=== PATIENT | male | born 1955 | race Caucasian/White ===

== ENCOUNTER 2016-12-24 11:37 | Inpatient (IN) ==
[2016-12-24] MEDS ORDERED: Naloxone 0.4 MG/ML INJ IVP PRN ×2 (13:32→13:36)
--- NOTE | 2016-12-24 13:39 | Cardiology History & Physical ---
Date of Encounter: 12/24/16 Time of Encounter: 13:30 Assessment and Plan (1) Atrial flutter with rapid ventricular response Current Visit: No Status: Acute Per Cardiology: History of paroxysmal atrial fibrillation previously on metoprolol tartrate 25 mg by mouth twice a day and full dose aspirin for anticoagulation. Of note, patient is currently taking subcutaneous testosterone about every 4-5 months-- on his second regimen. Previously presented last week with symptomatic A. flutter with RVR in the 140s to 160s. During that hospital stay, Troponin negative 1, lectrolytes stable, recent thyroid testing normal June 2016. Underwent overnight pulse ox with no significant findings. Had echo November 2015 which showed EF 60%, moderate diastolic dysfunction, mild MR, mild TR, mild pulmonary hypertension, normal RA size, moderately dilated left atrium. Patient converted to sinus rhythm on IV Cardizem drip. Underwent nuclear stress test which was negative for ischemia. Started on Rythmol 150mg by mouth every 8 hours and Eliquis 5 mg by mouth twice a day. Presents now with recurrent atrial flutter in the 160s. Per discussion with Dr. Lopez, we'll continue his current dose of Rythmol, initiate IV Cardizem drip, will start short-acting by mouth Cardizem, possible ANALIA cardioversion tomorrow. Continue with anticoagulation. All questions answered. Patient and verbalized understanding and agreed with plan. Will discontinue lisinopril for now. History of Present Illness Chief complaint: Palps, SOB HPI: Joao is a 61 year old male with a relevant past medical history of atrial fibrillation, hypertension, and moderate diastolic dysfunction. Patient is status post direct admission last week for a flutter with RVR with spontaneous conversion to sinus rhythm on Cardizem drip. During hospital stay stress test was negative for ischemia and started on antiarrhythmic therapy of Rythmol 150 mg by mouth every 8 hours. Additionally initiated on Eliquis for anticoagulation. Patient presented to cardiology today with concerns or recurrent palpitations and shortness of breath starting yesterday evening. Patient directly admitted to cardiology again for further management of a flutter with RVR with ECG showing 140s to 160s. He reports compliance with medications and has not missed any doses. Denies any acute changes. He denies any active bleeding or blood loss. He does indicate was discharged home on lisinopril for blood pressure optimization. Past Med Surg Social Fam HX - Past Medical History Attestation: Yes The following information was validated with the patient. Source: patient, old records reviewed, obtained from family Medical history: atrial fibrillation, hypertension, kidney stones Psychiatric history: no psych history - Past Surgical History Surgical History: other - Social History Smoking Status: Former smoker Smokeless Tobacco Status: No Alcohol use: occasionally Drug use: none - Family History Mother Hx Family Cardiac Disorders: Yes Medications and Allergies Cholecalciferol (D-3) [Vitamin D] 5,000 unit PO DAILY 12/20/16 [History] Lactobacillus Combination No.8 [Adult Probiotic] 1 cap PO DAILY 12/20/16 [ History] Apixaban [Eliquis] 5 mg PO BID #60 tab 12/22/16 [Rx] Lisinopril [Zestril] 2.5 mg PO DAILY #30 tab 12/22/16 [Rx] Propafenone [Rhythmol] 150 mg PO Q8H #90 tab 12/22/16 [Rx] 3 Allergy/AdvReac Type Severity Reaction Status Date / Time No Known Allergies Allergy Verified 12/20/16 08:43 All Systems Review: A 10-system review of systems was performed and is negative for pertinent findings except as documented above in the HPI. - Constitutional Constitutional: fatigue - Cardiovascular Cardiovascular: dyspnea at rest, palpitations, rapid heart rate Physical Examination Vital Signs, Last 4 Hours Temp Pulse Resp BP Pulse Ox 12/24/16 13:18 97.8 F 178 18 124/82 95 General: Conversant, No Apparent Distress HEENT: Atraumatic, Normocephaly, Mucus Membranes Moist Neck: No JVD, Normal carotid pulses Cardiac: No Murmur, Other (Irregularly irregular) Lungs: Normal Breath Sounds, No Wheeze, Rales, Rhonchi Neuro: Alert and responsive, No focal deficits noted Abdomen: Soft, Non-Tender Skin: No rashes noted on visualized skin Musculoskeletal: No Chest Wall Tenderness Extremities: No Clubbing, No Cyanosis, No Edema, Normal Pulses Results Selected Entries 12/20/16 08:43 12/20/16 08:45 12/20/16 09:00 Temperature 97.9 F Pulse Rate 155 184 98 Respiratory Rate 20 20 20 Blood Pressure 125/106 118/101 130/86 12/20/16 09:15 Temperature Pulse Rate 161 Respiratory Rate 20 Blood Pressure 117/90 Laboratory Tests 12/20/16 12/20/16 12/20/16 09:08 09:08 09:08 WBC 9.9 Hgb 17.5 H Hct 53.8 H Plt Count 266 INR 1.1 Creatinine 1.09 Est GFR (Non-Af Amer) > 60 AST 17 ALT 24 Troponin I 12/20/16 17:14 WBC Hgb Hct Plt Count INR Creatinine Est GFR (Non-Af Amer) AST ALT Troponin I 0.01 Active Medications Diltiazem HCl (Cardizem) 30 mg PO Q6HR FANTASMA Stop: 06/25/17 13:35 Diltiazem HCl 125 mg/ Dextrose 125 mls @ 5 mls/hr IVC .Q24H FANTASMA PRN Reason: 5 MG/HR Stop: 06/25/17 13:46 Naloxone HCl (Narcan) 0.4 mg IVP Q2MIN PRN PRN Reason: Opioid Reversal Stop: 06/25/17 13:37 - Imaging and Cardiology Stress Test: report reviewed - EKG Interpretation EKG results cardiology: personally reviewed (Atrial flutter with RVR in the 160s ), other (Currently atrial flutter on telemetry in the 120s to 140s)
[2016-12-24] MEDS ORDERED: 0.9 % Sodium Chloride 500 ML ONE (19:59)
[2016-12-24] MEDS: APIXABAN 5 MG TABLET PO SCH (20:05)
[2016-12-25 07:39] VITALS: BP 116/82
[2016-12-25] MEDS: APIXABAN 5 MG TABLET PO SCH (07:50)
[2016-12-25] MEDS ORDERED: Lactobacillus 1 EACH CAP.SPRINK PO SCH (09:00)
[2016-12-25] MEDS ORDERED: Diltiazem CD (24hr) 120 MG CAPSULE PO SCH (09:00)
[2016-12-25] MEDS ORDERED: Cholecalciferol (D-3) 1,000 UNIT TABLET PO SCH (09:00)
--- NOTE | 2016-12-25 09:36 | Discharge Summary ---
Date of Encounter: 12/25/16 Time of Encounter: 09:30 - Discharge Diagnosis (1) Atrial flutter with rapid ventricular response Priority: Primary Status: Acute Comments: Presented withe recurrent symptomatic aflutter. - Discharge Medications Prescriptions: Diltiazem CD (24hr) [Cardizem CD] 120 mg PO DAILY #30 cap Home Medications: Cholecalciferol (D-3) [Vitamin D] 5,000 unit PO DAILY 12/20/16 [History] Lactobacillus Combination No.8 [Adult Probiotic] 1 cap PO DAILY 12/20/16 [ History] Apixaban [Eliquis] 5 mg PO BID #60 tab 12/22/16 [Rx] Propafenone [Rhythmol] 150 mg PO Q8H #90 tab 12/22/16 [Rx] Diltiazem CD (24hr) [Cardizem CD] 120 mg PO DAILY #30 cap 12/25/16 [Rx] Allergies/Adverse Reactions: 3 Allergy/AdvReac Type Severity Reaction Status Date / Time No Known Allergies Allergy Verified 12/20/16 08:43 Procedures/tests Complete & Pending: Procedures Performed prior 72 hours Category Date Time Status ECG 12 lead ECG [ECG] AM 0600 Y 12/25/16 06:00 Completed ECG 12 lead ECG [ECG] AM 0600 Y 12/26/16 06:00 Ordered ECG 12 lead ECG [ECG] AM 0600 Y 12/27/16 06:00 Ordered Date of admission: 12/24/16 12:58 Primary care physician: Quintin Burns Jr, MD Consults: None Discharging clinician: Ant Case Anticipated date of discharge: 12/25/16 - Patient Status Disposition: Home, Self-Care Functional capacity at discharge: independent ambulation Overall status at discharge: patient is progressing back to baseline - Discharge Instructions Follow Up With: Quintin Burns Jr, MD [Primary Care Provider] - 12/31/16 3:00 pm Ant Case CNP [Advanced Practice Nurse] - (CARDIOLOGY OFFICE WILL CALL PATIENT AT HOME WITH FOLLOW UP APPOINTMENT) - Diet and Activity Diet: low fat, low cholesterol, low salt diet - Hospital Course Hospital course: Mr. Shepherd is a 61 year old male recently admitted for symptomatic aflutter with RVR with conversion to SR on Cardizem gtt. Started on Rythmol 150mg PO every [address] negative. Re-admitted for aflutter with RVR. Overnight converted to SR with IV and PO Cardizem. Per discussion with Dr. Lopez, will DC to home on Cardizem CD 120mg PO daily and continue Rythmol 150mg PO every 8 hrs. Will schedule f/u with EP Dr. Josse Mitchell for further eval for potential ablation. All questions answered. DC in stable condition. - Time Spent with Patient Total time spent providing and/or coordinating discharge services: Less than 30 minutes Physical Examination Vital Signs, Last 4 Hours Temp Pulse Resp BP Pulse Ox 12/25/16 07:55 97 12/25/16 07:35 98.0 F 78 18 116/82 98 General: Conversant, No Apparent Distress HEENT: Atraumatic, Normocephaly, Mucus Membranes Moist Cardiac: Reg Rate and Rhythm, Normal S1 and S2, No Murmur Lungs: Normal Breath Sounds, No Wheeze, Rales, Rhonchi Neuro: Alert and responsive, No focal deficits noted Skin: No rashes noted on visualized skin Musculoskeletal: No Chest Wall Tenderness Extremities: No Edema
--- NOTE | 2016-12-26 08:00 | Electrocardiograph Report ---
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
== END 2016-12-25 10:32 | disposition home or self-care (01) | DRG 310 ==
LOC: 2NNU → OBSVTOIN 12:58
PROVIDERS: ADMIT Internal Medicine; ATTEND Internal Medicine

== ENCOUNTER 2016-12-26 11:05 | Inpatient (IN) ==
[2016-12-26] MEDS ORDERED: Naloxone 0.4 MG/ML INJ IVP PRN (14:28)
[2016-12-26] MEDS ORDERED: Acetaminophen 325 MG TABLET PO PRN (14:34)
[2016-12-26] MEDS ORDERED: Ondansetron 4 MG/2 ML VIAL IVP PRN (14:34)
[2016-12-26] MEDS ORDERED: Mag Hydrox/Al Hydrox/Simeth 30 ML UDC PO PRN (14:35)
--- NOTE | 2016-12-26 14:48 | Cardiology History & Physical ---
Date of Encounter: 12/26/16 Time of Encounter: 14:38 Assessment and Plan (1) Atrial flutter with rapid ventricular response Current Visit: No Status: Acute History of paroxysmal atrial fibrillation. Recent admissions for atrial flutter with RVR. Previously presented 12/20/16 with symptomatic A. flutter with RVR in the 140s to 160s. During that hospital stay, TSH was normal. He underwent overnight pulse ox with no significant findings. He completed an exercise nuclear stress test that was negative for ischemia or infarct. Last TTE November 2015 showed EF 60% , moderate diastolic dysfunction, mild MR, mild TR, mild pulmonary hypertension , normal RA size, moderately dilated left atrium. Patient converted to sinus rhythm on IV Cardizem drip. Started on Rythmol 150mg by mouth every 8 hours and Eliquis 5 mg by mouth twice a day. Second admission on 12/24/16 he presented with recurrent A. flutter with RVR, HR 160's. He converted on cardizem gtt and was started on oral cardizem with rythmol. Presents now with recurrent atrial flutter in the 160s. EKG shows atrial flutter , Discussed with Dr. Lopez, we will increase rythmol to 225 mg every 8 hours and initiate IV Cardizem drip. Continue with anticoagulation. Check BMP, mg, and CBC. EP consult tomorrow. (2) Hypertension Current Visit: No Status: Chronic Noted to have elevated diastolic pressures. Cardizem gtt will be started. If no improvement consider adding back lisinopril. Qualifiers: Hypertension type: essential hypertension Qualified Code(s): I10 - Essential (primary) hypertension History of Present Illness Chief complaint: rapid heart rate, palpitations HPI: Hannah Shepherd is a 61 year old male with a past medical history of atrial fibrillation on eliquis, hypertension, and moderate diastolic dysfunction. Patient is status post direct admission 12/20/16 and again 12/24/16 for a flutter with RVR. He was initially started on rythmol therapy on 12/20/16. He converted spontaneously to NSR while on cardizem gtt. He underwent exercise nuclear stress test that was negative for ischemia. He was discharged home on rythmol 150mg every 8 hours. On 12/23/16 he was directly admitted again for recurrent atrial flutter with RVR. He again converted to NSR on cardizem gtt. He was started on cardizem CD 120 mg daily and continued on rythmol therapy at the same dose. This morning he developed palpitations and tachycardia again. He called the cardiology office. Due to HR being in the 160's it was decided to directly admit him and increase rythmol to 225 mg every 8 hours. Patient and are agreeable. Past Med Surg Social Fam HX - Past Medical History Attestation: Yes The following information was validated with the patient. Medical history: atrial fibrillation, hypertension, kidney stones Psychiatric history: no psych history - Past Surgical History Surgical History: other - Social History Smoking Status: Former smoker Smokeless Tobacco Status: No Alcohol use: occasionally Drug use: none - Family History Mother Living Status: Age at : 74 Cause of : complications from liver transplant and cva Hx Family Cardiac Disorders: Yes Hx Family Respiratory Disorders: No Hx Family Cancer: No Hx Family GI Disorders: Yes Hx Family Endocrine Disorder: No Hx Family Neurologic Disorders: Yes Hx Family Medical Disorders: Yes Medications and Allergies Cholecalciferol (D-3) [Vitamin D] 5,000 unit PO DAILY 12/20/16 [History] Lactobacillus Combination No.8 [Adult Probiotic] 1 cap PO DAILY 12/20/16 [ History] Apixaban [Eliquis] 5 mg PO BID #60 tab 12/22/16 [Rx] Propafenone [Rhythmol] 150 mg PO Q8H #90 tab 12/22/16 [Rx] Diltiazem CD (24hr) [Cardizem CD] 120 mg PO DAILY #30 cap 12/25/16 [Rx] 3 Allergy/AdvReac Type Severity Reaction Status Date / Time No Known Allergies Allergy Verified 12/20/16 08:43 All Systems Review: A 10-system review of systems was performed and is negative for pertinent findings except as documented above in the HPI. Physical Examination Vital Signs, Last 4 Hours Temp Pulse Resp BP Pulse Ox 12/26/16 12:58 97.6 F 162 16 122/105 98 General: Conversant, No Apparent Distress HEENT: Atraumatic, Normocephaly, Mucus Membranes Moist Neck: No JVD, Normal carotid pulses Cardiac: Other (Irregularly irregular) Lungs: Normal Breath Sounds, No Wheeze, Rales, Rhonchi Neuro: Alert and responsive, No focal deficits noted Abdomen: Soft, Non-Tender Skin: No rashes noted on visualized skin Musculoskeletal: No Chest Wall Tenderness Extremities: No Clubbing, No Cyanosis, No Edema, Normal Pulses Results Labs pending - Imaging and Cardiology Stress Test: report reviewed Echo: report reviewed - EKG Interpretation EKG results cardiology: personally reviewed (Atrial flutter with RVR, HR 157, no acute changes) - VTE Reasons for not Prescribing Prophylaxis: Not indicated-Anticoagulated or INR therapeutic
[2016-12-26 15:25] LABS: Basophils % 0.4 %; Eosinophils # 0.1 K/mcL (0.0-0.6); Eosinophils % 0.7 %; Hematocrit 49.1 % (37.5-50.1); Hemoglobin 16.4 g/dL (12.9-16.9); Immature Granulocytes % 0.6 % (0-4); Lymphocytes # 2.2 K/mcL (0.6-4.6); Lymphocytes % 24.4 %; Mean Corpuscular HGB Conc 33.4 g/dL (31.6-35.5); Mean Corpuscular Hemoglobin 28.5 pg (28.0-33.3); Mean Corpuscular Volume 85.4 fL (83.0-100.0); Mean Platelet Volume 10.3 fL (9.4-12.4); Monocytes # 0.8 K/mcL (0.0-1.3); Neutrophils # 5.8 K/mcL (1.6-8.9); Platelet Count 261 K/mcL (140-400); Red Blood Count 5.75 M/mcL (4.19-5.50); Red Cell Distribution Width 14.6 % (11.5-14.5); Segmented Neutrophils % 64.9 %
[2016-12-26 15:37] LABS: BUN/Creatinine Ratio 9 (6-26); Blood Urea Nitrogen 10 mg/dL (8-26); Calcium 9.5 mg/dL (8.6-10.8); Carbon Dioxide 26 mEq/L (19-29); Chloride 103 mEq/L (98-109); Glucose 99 mg/dL (70-99); Magnesium 2.1 mg/dL (1.6-2.6); Osmolality,Calculated 283 (280-300); Potassium 3.9 mEq/L (3.5-4.5); Sodium 137 mEq/L (136-145); eGFR For African Americans > 60 (> 60); eGFR For Non-African Americans > 60 (> 60)
[2016-12-26] MEDS: APIXABAN 5 MG TABLET PO SCH (21:48)
[2016-12-27] MEDS: Lactobacillus 1 EACH CAP.SPRINK PO SCH (07:52)
[2016-12-27] MEDS: APIXABAN 5 MG TABLET PO SCH ×2 (07:52→20:49)
[2016-12-27] MEDS: Cholecalciferol (D-3) 1,000 UNIT TABLET PO SCH (07:52)
--- NOTE | 2016-12-27 08:00 | Electrophysiology H & P ---
Date of Encounter: 12/27/16 Time of Encounter: 08:00 Assessment and Plan (1) Atrial flutter with rapid ventricular response Current Visit: No Status: Acute Per Electrophysiology: History of paroxysmal atrial fibrillation. 3rd recent admission for atrial flutter with RVR. Previously presented 12/20/16 with symptomatic A. flutter with RVR in the 140s to 160s. During that hospital stay, TSH was normal. He underwent overnight pulse ox with no significant findings. He completed an exercise nuclear stress test that was negative for ischemia or infarct. Last TTE November 2015 showed EF 60%, moderate diastolic dysfunction, mild MR, mild TR, mild pulmonary hypertension, normal RA size, moderately dilated left atrium. Patient converted to sinus rhythm on IV Cardizem drip. Started on Rythmol 150mg by mouth every 8 hours and Eliquis 5 mg by mouth twice a day. Second admission on 12/24/16 he presented with recurrent A. flutter with RVR, HR 160's. He converted on cardizem gtt and was started on oral cardizem with rythmol. Now remains recurrent atrial flutter in the 90's - 130's. S/p 3 doses of increased Rythmol to 225 mg every 8 hours and on IV Cardizem drip 10mg/hr. per hour. Current ECG shows atrial flutter in the 90s with QRS 84 ms. Discussed and reviewed with Dr. Josse Mitchell, recommendations to initiate Cardizem 60 mg by mouth every 6 hours and attempt to wean off IV Cardizem drip. We'll continue with increased dose of Rythmol. Possible ANALIA/DC cardioversion tomorrow. Additionally, will facilitate scheduling of ablation as outpatient in the next 2 -3 weeks. On Eliquis for anticoagulation-- initiated last week and denies any active bleeding or blood loss. Reports compliance. History of Present Illness Chief complaint: Palps HPI: EP CONSULT Dr. Shepherd is a 61 year old male with a past medical history of atrial fibrillation on eliquis, hypertension, and moderate diastolic dysfunction. With multiple recent admissions for a flutter with RVR. Patient is status post direct admission 12/20/16 and again 12/24/16 for a flutter with RVR. He was initially started on rythmol therapy on 12/20/16. He converted spontaneously to NSR while on cardizem gtt. He underwent exercise nuclear stress test that was negative for ischemia. He was discharged home on rythmol 150mg every 8 hours. On 12/23/16 he was directly admitted again for recurrent atrial flutter with RVR. He again converted to NSR on cardizem gtt. He was started on cardizem CD 120 mg daily and continued on rythmol therapy at the same dose. This morning he developed palpitations and tachycardia again. He reported anxiousness, palpitations, mild shortness of breath. He called the cardiology office. Due to HR being in the 160's it was decided to directly admit him and increase rythmol to 225 mg every 8 hours. Patient seen today with at bedside. Reports "still some mild uneasiness ". He denies any dizziness, chest pain, any active bleeding or blood loss. Reports compliance with medications at home. Past Med Surg Social Fam HX - Past Medical History Attestation: Yes The following information was validated with the patient. Source: patient, old records reviewed, obtained from family Medical history: atrial fibrillation, hypertension, kidney stones Psychiatric history: no psych history - Past Surgical History Surgical History: other - Social History Smoking Status: Former smoker Smokeless Tobacco Status: No Alcohol use: occasionally Drug use: none - Family History Mother Living Status: Age at : 74 Cause of : complications from liver transplant and cva Hx Family Cardiac Disorders: Yes Hx Family Respiratory Disorders: No Hx Family Cancer: No Hx Family GI Disorders: Yes Hx Family Endocrine Disorder: No Hx Family Neurologic Disorders: Yes Hx Family Medical Disorders: Yes Medications and Allergies Cholecalciferol (D-3) [Vitamin D] 5,000 unit PO DAILY 12/20/16 [History] Lactobacillus Combination No.8 [Adult Probiotic] 1 cap PO DAILY 12/20/16 [ History] Apixaban [Eliquis] 5 mg PO BID #60 tab 12/22/16 [Rx] Propafenone [Rhythmol] 150 mg PO Q8H #90 tab 12/22/16 [Rx] Diltiazem CD (24hr) [Cardizem CD] 120 mg PO DAILY #30 cap 12/25/16 [Rx] 3 Allergy/AdvReac Type Severity Reaction Status Date / Time No Known Allergies Allergy Verified 12/20/16 08:43 All Systems Review: A 10-system review of systems was performed and is negative for pertinent findings except as documented above in the HPI. - Cardiovascular Cardiovascular: as per HPI, irregular heart rhythm, palpitations, rapid heart rate Physical Examination Vital Signs, Last 4 Hours Temp Pulse Resp BP Pulse Ox 12/27/16 04:00 97.5 F L 98 16 103/75 96 General: Conversant, No Apparent Distress HEENT: Atraumatic, Normocephaly, Mucus Membranes Moist Cardiac: No Murmur, Other (Irregularly irregular) Lungs: Normal Breath Sounds, No Wheeze, Rales, Rhonchi Neuro: Alert and responsive, No focal deficits noted Abdomen: Soft, Non-Tender Skin: No rashes noted on visualized skin Musculoskeletal: No Chest Wall Tenderness Extremities: No Clubbing, No Cyanosis, No Edema, Normal Pulses Results 12/26/16 15:04 12/26/16 15:04 Lab Results Laboratory Tests 12/26/16 15:04 Magnesium 2.1 Active Medications Acetaminophen (Tylenol) 650 mg PO Q6HR PRN PRN Reason: Pain Stop: 06/27/17 14:35 Al Hydrox/Mg Hydrox/Simethicone (Maalox) 15 ml PO Q6HR PRN; Protocol PRN Reason: Dyspepsia Stop: 06/27/17 14:36 Apixaban (Eliquis) 5 mg PO BID FANTASMA Stop: 06/27/17 21:01 Last Admin: 12/27/16 07:52 Dose: 5 mg Diltiazem HCl 125 mg/ Dextrose 125 mls @ 5 mls/hr IVC .Q24H FANTASMA; 5 MG/HR PRN Reason: Protocol Stop: 06/27/17 14:01 Last Admin: 12/26/16 14:22 Dose: 5 mg/hr, 5 mls/hr Lactobacillus Acidophilus/Rhamnosus (Culturelle) 1 each PO DAILY [facility]ANTASMA Stop: 06/28/17 09:01 Last Admin: 12/27/16 07:52 Dose: 1 each Naloxone HCl (Narcan) 0.4 mg IVP Q2MIN PRN PRN Reason: Opioid Reversal Stop: 06/27/17 14:29 Ondansetron HCl (Zofran) 4 mg IVP Q8HR PRN; Protocol PRN Reason: Nausea And Vomiting Stop: 06/27/17 14:35 Propafenone HCl (Rhythmol) 225 mg PO Q8H [facility] Stop: 06/27/17 15:01 Last Admin: 12/27/16 07:51 Dose: 225 mg Vitamin D (Vitamin D) 1,000 unit PO DAILY [facility] Stop: 06/28/17 09:01 Last Admin: 12/27/16 07:52 Dose: 1,000 unit - Imaging and Cardiology Stress Test: report reviewed Echo: report reviewed - EKG Interpretation EKG results cardiology: other (24 hrs tele reviewed with avg HR 118, currently 130's aflutter) - VTE Reasons for not Prescribing Prophylaxis: Not indicated-Anticoagulated or INR therapeutic
[2016-12-27] MEDS: dilTIAZem HCl 60 MG TABLET PO SCH ×4 (11:01→20:49)
--- NOTE | 2016-12-27 13:54 | Event Note ---
Date of Encounter: 12/27/16 Time of Encounter: 13:45 - Cardiology Event Note Clinically remained stable. Remains atrial flutter on telemetry with heart rate fluctuating 90s to 110s. Remains on IV Cardizem drip at 10 mg per hour with orders to titrate to keep heart rate less than 100. Received one dose of Cardizem 60 mg by mouth every 6 hours.
--- NOTE | 2016-12-27 17:49 | Electrocardiograph Report ---
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
[2016-12-28] MEDS: APIXABAN 5 MG TABLET PO SCH (07:10)
[2016-12-28] MEDS: dilTIAZem HCl 60 MG TABLET PO SCH ×3 (07:11→16:16)
--- NOTE | 2016-12-28 09:40 | Event Note ---
Date of Encounter: 12/28/16 Time of Encounter: 09:00 - Cardiology Event Note Selected Entries 12/27/16 15:00 12/27/16 20:21 12/28/16 05:05 Blood Pressure 130/79 128/97 120/74 12/28/16 06:47 Blood Pressure 112/68 Status post 6 doses Rythmol 225mg PO Q8hrs. current ECG shows atrial flutter in the 80s with QRS of 115 ms. Tolerating Cardizem 60 mg by mouth every 6 hours. Remains on Cardizem drip at 10mg/hr--Will attempt to wean off. Currently atrial flutter in the 80s to 90s on telemetry. Discussed and reviewed with Dr. Lopez , we'll proceed with ANALIA/DC cardioversion today. Patient and agreeable and all questions answered.
[2016-12-28] MEDS ORDERED: *HR* Midazolam HCl 2 MG/2 ML VIAL IVP PRN (10:45)
[2016-12-28] MEDS ORDERED: 0.9 % Sodium Chloride 500 ML IVC ONE (10:45)
[2016-12-28] MEDS ORDERED: Tetracaine/Benzocaine/Butamben 200MG/SPRAY (100SPY/BOT) MM ONE (10:45)
[2016-12-28] MEDS ORDERED: *HR* Midazolam HCl 5 MG/5 ML VIAL IVP ONE ×2 (11:30)
[2016-12-28] MEDS: *HR* Midazolam HCl 5 MG/5 ML VIAL IVP ONE ×2 (11:45→12:00)
[2016-12-28] MEDS: *HR* FentaNYL (PF) 100 MCG/2 ML VIAL IVP PRN ×3 (11:45→11:55)
--- NOTE | 2016-12-28 12:40 | Event Note ---
Date of Encounter: 12/28/16 Time of Encounter: 12:36 Procedure: ANALIA Indication: Atrial flutter. Anesthesia: Versed and Fentanyl. Findings: Normal GREGG. No thrombus. Normal LV function. Mild to moderate MR. Complications: None. See official report. Procedure: Synchronized electrical cardioversion. Indication: Atrial flutter. Results: Successful holiness of NSR. Complications: None. No neurological deficits after procedure. See official report.
--- NOTE | 2016-12-28 13:32 | Electrocardiograph Report ---
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
[2016-12-28] MEDS: Lactobacillus 1 EACH CAP.SPRINK PO SCH (13:52)
[2016-12-28] MEDS: Cholecalciferol (D-3) 1,000 UNIT TABLET PO SCH (13:52)
--- NOTE | 2016-12-28 14:45 | Event Note ---
Date of Encounter: 12/28/16 Time of Encounter: 14:00 - Cardiology Event Note Patient seen and evaluated post-cardioversion. Remained sinus rhythm in the 70s on telemetry. Denies any concerns or complaints. Neurologically intact. Per discussion with Dr. Lopez, plan for discharge home today.
--- NOTE | 2016-12-28 14:48 | Discharge Summary ---
Date of Encounter: 12/28/16 Time of Encounter: 15:00 - Discharge Diagnosis (1) Atrial flutter with rapid ventricular response Priority: Primary Status: Acute Comments: Presented with recurrent A. fib flutter with RVR. - Discharge Medications Prescriptions: dilTIAZem HCl [Cardizem] 60 mg PO QID #120 tab Propafenone [Rhythmol] 225 mg PO Q8H #90 tab Home Medications: Cholecalciferol (D-3) [Vitamin D] 5,000 unit PO DAILY 12/20/16 [History] Lactobacillus Combination No.8 [Adult Probiotic] 1 cap PO DAILY 12/20/16 [ History] Apixaban [Eliquis] 5 mg PO BID #60 tab 12/22/16 [Rx] Propafenone [Rhythmol] 225 mg PO Q8H #90 tab 12/28/16 [Rx] dilTIAZem HCl [Cardizem] 60 mg PO QID #120 tab 12/28/16 [Rx] Allergies/Adverse Reactions: 3 Allergy/AdvReac Type Severity Reaction Status Date / Time No Known Allergies Allergy Verified 12/20/16 08:43 Procedures/tests Complete & Pending: Procedures Performed prior 72 hours Category Date Time Status ECG 12 lead ECG [ECG] Routine Y 12/26/16 13:37 Completed EKG [ECG 12 lead ECG] [ECG] Routine Y 12/27/16 07:00 Completed EV ellyn guided cardioversion Routine Y 12/28/16 10:43 Completed Date of admission: 12/26/16 12:46 Primary care physician: Quintin Burns Jr, MD Consults: 12/27/16 08:02 Consult to Electrophysiology (EP) [CONS] Routine Consulting Provider: Electrophysiology Osiris Reason for Consult: atrial flutter with rvr Call Completed: Yes Discharging clinician: Ant Case Anticipated date of discharge: 12/28/16 - Patient Status Disposition: Home, Self-Care Condition: Good Functional capacity at discharge: independent ambulation Overall status at discharge: patient is progressing back to baseline - Discharge Instructions Follow Up With: Quintin Burns Jr, MD [Primary Care Provider] - - Diet and Activity Activity: other (post DCCV instructions provided) Diet: advance to your usual diet - Hospital Course Hospital course: Mr. Shepherd is a 61 year old male who presents with recurrent symptomatic A flutter with RVR. This is third hospitalization over the past one week for a flutter with RVR. Initial hospitalization patient converted to sinus rhythm with IV Cardizem drip, underwent negative stress test and started on antiarrhythmic therapy of Rythmol 150 mg by mouth every 8 hours. Had recurrent admission for a flutter with RVR with conversion to sinus rhythm with IV Cardizem drip again and addition of Cardizem CD 120 mg by mouth daily. During this most recent hospitalization for a flutter with RVR he was started on IV Cardizem drip and Rythmol was increased to 225 mg by mouth every 8 hours. Patient started on short-acting Cardizem 60 mg by mouth every 6 hours. Received 6 total doses and underwent ELLYN guided DC cardioversion with successful conversion to sinus rhythm with one shock of 100 J. Continues to remain sinus rhythm. Patient now prepping discharged home today in stable condition. Patient requesting to remain on short-acting Cardizem 60 mg by mouth every 6 hours instead of converting to long acting. Will continue with Rythmol 225 mg by mouth daily. He remains on anticoagulation of Eliquis 5 mg by mouth twice a day started last week with no missed doses and appears to be tolerating well. Patient provided instructions regarding post procedure activities. Patient will follow-up as an outpatient with Dr. Josse Mitchell with electrophysiology. Per previous discussions with Dr. Josse Mitchell, will begin coordination for outpatient atrial flutter ablation in the next 2-3 weeks. Patient's verbalized understanding and agreed with plan. All questions answered. - Time Spent with Patient Total time spent providing and/or coordinating discharge services: Physical Examination Vital Signs, Last 4 Hours Temp Pulse Resp BP Pulse Ox 12/28/16 11:20 98.4 F 83 16 130/91 93 General: Conversant, No Apparent Distress HEENT: Atraumatic, Normocephaly, Mucus Membranes Moist Neck: No JVD, Normal carotid pulses Cardiac: Reg Rate and Rhythm, Normal S1 and S2, No Murmur Lungs: Normal Breath Sounds, No Wheeze, Rales, Rhonchi Neuro: Alert and responsive, No focal deficits noted Abdomen: Soft, Non-Tender Skin: No rashes noted on visualized skin Musculoskeletal: No Chest Wall Tenderness Extremities: No Clubbing, No Cyanosis, No Edema, Normal Pulses - VTE Reasons for not Prescribing Prophylaxis: Not indicated-Anticoagulated or INR therapeutic
[2016-12-28 15:31] VITALS: BP 113/71
--- NOTE | 2016-12-31 13:43 | Electrocardiograph Report ---
[place] [address] Test Date: 2016-12-28 Pat Name: Mauri Shepherd Department: 111 Room: 2NE33 Gender: M Benefits Coordinator: AGNIESZKA : 1955 Requested By: Timmy Lopez Order Number: [id number] Reading MD: Marleen Randall Measurements Intervals [place] Rate: 76 P: [place]: 0 QRS: -14 QRSD: 113 T: -37 QT: 380 QTc: 410 Interpretive Statements ATRIAL FLUTTER LOW QRS VOLTAGE IN EXTREMITY LEADS POSSIBLE INFERIOR MYOCARDIAL INFARCTION, OF INDETERMINATE AGE WITH POSTERIOR EXTENSION Electronically Signed On 12-31-2016 13:41:02 EDT by Marleen Randall
--- NOTE | 2016-12-31 13:44 | Electrocardiograph Report ---
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
--- NOTE | 2016-12-31 17:47 | Electrocardiograph Report ---
[address] [place] [address] Test Date: 2016-12-28 Pat Name: Mauri Shepherd Department: 111 Room: [facility] Gender: Radio Host: [facility] : 1955 Requested By: Timmy Lopez Order Number: [id number] Reading MD: Marleen Randall Measurements Intervals [place] Rate: 81 P: [place]: 0 QRS: -54 QRSD: 115 T: -59 QT: 414 QTc: 451 Interpretive Statements ATRIAL FLUTTER/TACHYCARDIA POSSIBLE INFERIOR [place] OF INDETERMINATE AGE Electronically Signed On 12-31-2016 17:45:07 EDT by Marleen Randall
== END 2016-12-28 17:58 | disposition home or self-care (01) | DRG 310 ==
LOC: 2NENU 12:46
PROVIDERS: ADMIT Internal Medicine; ATTEND Internal Medicine